=== PATIENT | female | born 1930 | race Caucasian/White ===

== ENCOUNTER 2017-03-05 08:26 | Day surgery (SDC) | payer OTHER, MEDICARE ==
[~2017-03-05] VITALS: Ht 167.6 cm; Wt 63.6 kg
[~2017-03-05 08:26] MED LIST: ACET-76 PO; ALBU8.5H8 IH; AMLO5TAB PO; CARV-49 PO; DIPH-186 PO; DIPH1TAB PO; FERR325T28 PO; FURO-150 PO; ISOS30TA9 PO; METF500T PO; MOME0.242 IH; MULT-1085 PO; NITR0.4T48 SL; OMEG10007 PO; OMEP20CA10 PO; POTA10TA36 PO; SUCR1TAB PO; ZOC40T PO; ZOL50T PO
[2017-03-05] MEDS ORDERED: LIDOcaine Viscous 15ml cup ONE (08:35)
[2017-03-05] MEDS ORDERED: fentaNYL/PF 50MCG/1 ML 2ML syringe ONE (08:35)
[2017-03-05] MEDS ORDERED: MIDAZolam 1mg/ml 10ml vial ONE (08:35)
[2017-03-05 08:40] VITALS: BP 207/103
[2017-03-05] MEDS ORDERED: DEXL60CA3 PO (09:00)
[2017-03-05] MEDS ORDERED: TRAM50TA2 PO (09:01)
[2017-03-05 10:38] VITALS: BP 201/105
[2017-03-05 10:46] VITALS: BP 196/96
[2017-03-05 11:06] VITALS: BP 203/147
[2017-03-05 11:16] VITALS: BP 183/85
== END 2017-03-05 11:30 | disposition home or self-care (01) ==
LOC: GI LAB 08:26
PROVIDERS: ATTEND Internal Medicine Gastroenterology
DX: K31.811 Angiodysplasia of stomach and duodenum with bleeding (principal); K31.7 Polyp of stomach and duodenum; M19.90 Unspecified osteoarthritis, unspecified site; Z98.890 Other specified postprocedural states; I10 Essential (primary) hypertension; E11.9 Type 2 diabetes mellitus without complications; I25.10 Atherosclerotic heart disease of native coronary artery without angina pectoris; Z95.4 Presence of other heart-valve replacement; Z90.710 Acquired absence of both cervix and uterus; Z90.49 Acquired absence of other specified parts of digestive tract
CPT/HCPCS: 44366; 99152; 99153; J2250; J3010; J7030; A4620; G0500

== ENCOUNTER 2017-03-20 12:29 | Outpatient (CLI) | payer OTHER, MEDICARE ==
[~2017-03-20 12:29] MED LIST changes: -ACET-76 PO; -ALBU8.5H8 IH; -AMLO5TAB PO; -CARV-49 PO; +DEXL60CA3 PO; -DIPH-186 PO; -DIPH1TAB PO; -MOME0.242 IH; -MULT-1085 PO; -OMEP20CA10 PO; +TRAM50TA2 PO
== END 2017-03-20 23:59 | disposition home or self-care (01) ==
LOC: RAD 12:29
PROVIDERS: ATTEND Internal Medicine Interventional Cardiology
DX: Z46.89 Encounter for fitting and adjustment of other specified devices (principal); R91.8 Other nonspecific abnormal finding of lung field; Z95.2 Presence of prosthetic heart valve
CPT/HCPCS: 36415; 71046; 83880

== ENCOUNTER 2017-05-24 09:12 | Observation (INO) | payer MEDICARE, OTHER ==
[2017-05-24] VITALS (13 sets, daily range): BP systolic 120–182; BP diastolic 62–79
[~2017-05-24] VITALS: Ht 167.6 cm; Wt 65.6 kg
[2017-05-24] MEDS ORDERED: HYDROcodone/acetaminophen 5mg/325mg tablet PO PRN (10:30)
[2017-05-24] MEDS ORDERED: mag hydrox/Alum hydrox/simeth 30ml oral suspension PO PRN (10:30)
[2017-05-24] MEDS ORDERED: ondansetron/PF 4mg/2ml inj IV PRN (10:30)
[2017-05-24] MEDS ORDERED: acetaminophen 325mg tablet PO PRN (10:30)
[2017-05-24] MEDS ORDERED: magnesium hydroxide 30ml (MOM) UD suspension PO PRN (10:30)
[2017-05-24] MEDS ORDERED: diphenhydrAMINE 25mg capsule PO PRN (10:30)
[2017-05-24] MEDS ORDERED: morphine 4 MG/ML inj SYRINge IV PRN (10:30)
[2017-05-24] MEDS ORDERED: nitroGLYCERIN 0.4mg SUBLingual tab SL PRN (10:40)
[2017-05-24] MEDS ORDERED: sucralfate 1 gm tablet PO PRN (10:40)
[2017-05-24] MEDS ORDERED: dextrose 50%-water 50ml dispensing syringe IV PRN ×2 (11:50)
[2017-05-24] MEDS ORDERED: dextrose ORAL solution 15 GM/59 ML bottle PO PRN ×2 (11:50)
[2017-05-24] MEDS ORDERED: glucagon, human recombinant 1mg kit SUBCUT PRN (11:50)
[2017-05-24] MEDS ORDERED: MESSAGE TO PHARMACY PO ONE (11:50)
[2017-05-24] MEDS ORDERED: insulin Lispro (HumaLOG) vial - multi-dose SQ SCH (11:50)
[2017-05-24] MEDS: isosorbide dinitrate 5mg tablet PO SCH (13:51)
[2017-05-24] MEDS: ferrous sulfate 325mg tablet PO SCH ×2 (13:51→20:12)
[2017-05-24] MEDS ORDERED: AMLO5TAB PO (13:56)
[2017-05-24] MEDS ORDERED: CARV-49 PO (13:56)
[2017-05-24] MEDS ORDERED: MOME220A3 IN (13:56)
[2017-05-24] MEDS ORDERED: ALBU8.5H8 INH (13:58)
[2017-05-24] MEDS ORDERED: MULT-955 PO (13:58)
[2017-05-24] MEDS: furosemide 40mg/4ml inj IV SCH ×2 (15:06→20:05)
[2017-05-24] MEDS ORDERED: metFORMIN 500mg tablet PO SCH (20:00)
[2017-05-24] MEDS ORDERED: atorvastatin 20mg tablet PO SCH (21:00)
[2017-05-24] MEDS ORDERED: insulin glargine (Lantus) pen - multi-dose SQ SCH (21:00)
[2017-05-24 22:19] LABS: BASOPHILS # (AUTO) 0.1 X10'3 (0-0.2); BASOPHILS % (AUTO) 0.7 % (0-1); EOSINOPHILS # (AUTO) 0.2 X10'3 (0-0.9); EOSINOPHILS % (AUTO) 2.9 % (0-6); HEMATOCRIT 27.3 % (35.0-45.0); LYMPHOCYTES # (AUTO) 1.6 X10'3 (1.1-4.8); LYMPHOCYTES % (AUTO) 18.8 % (21-51); MEAN CORPUSCULAR HEMOGLOBIN 27.3 PG (27.0-31.0); MEAN CORPUSCULAR HGB CONC 33.1 % (33.0-36.5); MEAN CORPUSCULAR VOLUME 82.3 FL (78-98); MONOCYTES # (AUTO) 0.7 X10'3 (0-0.9); MONOCYTES % (AUTO) 8.4 % (2-12); NEUTROPHILS % (AUTO) 69.2 % (42-75); PLATELET COUNT 217 X10'3 (140-440); RED BLOOD COUNT 3.32 X10'6 (4.20-5.60); RED CELL DISTRIBUTION WIDTH 18.4 % (11.5-14.5); WHITE BLOOD COUNT 8.6 X10'3 (4.5-11.0)
[2017-05-25] VITALS (12 sets, daily range): BP systolic 134–162; BP diastolic 69–93
[2017-05-25] MEDS ORDERED: pantoprazole 40mg Tablet.DR PO SCH (07:30)
[2017-05-25] MEDS ORDERED: OMEGA-3/DHA/EPA/FISH OIL 1 EACH CAPSULE.DR PO SCH (08:00)
[2017-05-25] MEDS ORDERED: potassium chloride 10mEq ER tablet PO SCH (08:00)
[2017-05-25] MEDS ORDERED: sertraline 50mg tablet PO SCH (08:00)
[2017-05-25] MEDS: isosorbide dinitrate 5mg tablet PO SCH (08:01)
[2017-05-25] MEDS: ferrous sulfate 325mg tablet PO SCH (08:01)
[2017-05-25] MEDS: furosemide 40mg/4ml inj IV SCH (08:02)
[2017-05-25] MEDS ORDERED: cyanocobalamin 1,000 mcg/ml inj IM ONE (09:10)
[2017-05-25 09:32] LABS: BASOPHILS % (AUTO) 0.1 % (0-1); EOSINOPHILS # (AUTO) 0.2 X10'3 (0-0.9); EOSINOPHILS % (AUTO) 2.8 % (0-6); HEMATOCRIT 34.9 % (35.0-45.0); LYMPHOCYTES # (AUTO) 0.9 X10'3 (1.1-4.8); LYMPHOCYTES % (AUTO) 10.6 % (21-51); MEAN CORPUSCULAR HEMOGLOBIN 28.6 PG (27.0-31.0); MEAN CORPUSCULAR HGB CONC 34.3 % (33.0-36.5); MEAN CORPUSCULAR VOLUME 83.3 FL (78-98); MEAN PLATELET VOLUME 7.7 FL (7.4-10.4); MONOCYTES # (AUTO) 0.6 X10'3 (0-0.9); MONOCYTES % (AUTO) 6.4 % (2-12); NEUTROPHILS # (AUTO) 7.2 X10'3 (1.8-7.7); NEUTROPHILS % (AUTO) 80.1 % (42-75); PLATELET COUNT 210 X10'3 (140-440); RED CELL DISTRIBUTION WIDTH 17.8 % (11.5-14.5)
[2017-05-25 09:44] LABS: PARTIAL THROMBOPLASTIN TIME 25 SECONDS (22-32); PROTHROMBIN TIME 9.9 SECONDS (9.0-12.0)
[2017-05-25 09:49] LABS: ALANINE AMINOTRANSFERASE 20 U/L (12-78); ALBUMIN 2.9 G/DL (3.4-5.0); ALBUMIN/GLOBULIN RATIO 0.8 (1.1-1.5); ALKALINE PHOSPHATASE 67 IU/L (46-116); ANION GAP 11 (8-16); ASPARTATE AMINO TRANSFERASE 17 U/L (10-37); BILIRUBIN,TOTAL 0.5 MG/DL (0.1-1.0); BLOOD UREA NITROGEN 56 MG/DL (7-18); BUN/CREATININE RATIO 20.1 (6.6-38.0); CALCIUM 8.5 MG/DL (8.5-10.1); CHLORIDE 106 MMOL/L (99-107); CREATININE 2.79 MG/DL (0.40-0.90); GLUCOSE 160 MG/DL (70-104); MAGNESIUM 1.8 MG/DL (1.5-2.4); POTASSIUM 4.5 MMOL/L (3.5-5.1); SODIUM 142 MMOL/L (135-145); TOTAL CARBON DIOXIDE 25.5 MMOL/L (24-32); TOTAL PROTEIN 6.6 G/DL (6.4-8.2); eGFR 16 ML/MIN
== END 2017-05-25 13:37 | disposition home or self-care (01) ==
LOC: EDSTATUS 09:12 → S STAY 09:16 → MED 3N 09:57
PROVIDERS: ADMIT Internal Medicine; ATTEND Internal Medicine
DX: D64.9 Anemia, unspecified (principal); E78.5 Hyperlipidemia, unspecified; E11.9 Type 2 diabetes mellitus without complications; I11.0 Hypertensive heart disease with heart failure; I50.9 Heart failure, unspecified; I65.23 Occlusion and stenosis of bilateral carotid arteries; Z87.891 Personal history of nicotine dependence; Z90.710 Acquired absence of both cervix and uterus; Z95.2 Presence of prosthetic heart valve
CPT/HCPCS: 36415; 36430; 80053; 82948; 83036; 83735; 84100; 85025; 85610; 85730; 86870; 86885; 86900; 86901; 86902; 86905; 86922; 86945; 87070; 93880; 96372; 96374; 96376; G0378; J1940; J3420; J7030; P9016; 85027; 86920; J1815

== ENCOUNTER 2017-07-09 08:37 | Outpatient (CLI) | payer OTHER ==
[~2017-07-09 08:37] MED LIST changes: +ALBU8.5H8 INH; +AMLO5TAB PO; +CARV-49 PO; -FURO-150 PO; -METF500T PO; +MOME220A3 IN; +MULT-955 PO; -POTA10TA36 PO; -TRAM50TA2 PO
[2017-07-09 10:04] LABS: BASOPHILS % (AUTO) 0.3 % (0-1); EOSINOPHILS # (AUTO) 0.3 X10'3 (0-0.9); EOSINOPHILS % (AUTO) 2.9 % (0-6); HEMATOCRIT 32.4 % (35.0-45.0); HEMOGLOBIN 10.4 g/dl (12.0-16.0); LYMPHOCYTES # (AUTO) 1.5 X10'3 (1.1-4.8); LYMPHOCYTES % (AUTO) 17.6 % (21-51); MEAN CORPUSCULAR HGB CONC 32.1 % (33.0-36.5); MEAN CORPUSCULAR VOLUME 83.9 FL (78-98); MEAN PLATELET VOLUME 7.4 FL (7.4-10.4); MONOCYTES # (AUTO) 0.5 X10'3 (0-0.9); MONOCYTES % (AUTO) 6.1 % (2-12); NEUTROPHILS # (AUTO) 6.3 X10'3 (1.8-7.7); NEUTROPHILS % (AUTO) 73.1 % (42-75); PLATELET COUNT 271 X10'3 (140-440); RED BLOOD COUNT 3.85 X10'6 (4.20-5.60); RED CELL DISTRIBUTION WIDTH 16.8 % (11.5-14.5); WHITE BLOOD COUNT 8.6 X10'3 (4.5-11.0)
[2017-07-09 10:20] LABS: ALBUMIN 2.7 G/DL (3.4-5.0); ANION GAP 8 (8-16); BLOOD UREA NITROGEN 43 MG/DL (7-18); BUN/CREATININE RATIO 14.7 (6.6-38.0); CHLORIDE 105 MMOL/L (99-107); CREATININE 2.92 MG/DL (0.40-0.90); GLUCOSE 105 MG/DL (70-104); POTASSIUM 4.7 MMOL/L (3.5-5.1); SODIUM 140 MMOL/L (135-145); TOTAL CARBON DIOXIDE 26.6 MMOL/L (24-32); eGFR 15 ML/MIN
[2017-07-10] MEDS ORDERED: ASCO500C15 PO (11:41)
[2017-07-10] MEDS ORDERED: OMEP20TA5 PO (11:41)
[2017-07-10] MEDS ORDERED: CHOL200026 PO (11:41)
[2017-07-10] MEDS ORDERED: CALC600T2 PO (11:41)
[2017-07-10] MEDS ORDERED: POTA10TA19 PO (11:41)
[2017-07-10] MEDS ORDERED: DIPH1TAB PO (11:41)
[2017-07-10] MEDS ORDERED: FOLI0.8T PO (11:41)
[2017-07-10] MEDS ORDERED: FURO-150 PO (11:41)
== END 2017-07-09 23:59 | disposition home or self-care (01) ==
LOC: VAS 08:37
PROVIDERS: ATTEND Internal Medicine Cardiovascular Disease
DX: I65.23 Occlusion and stenosis of bilateral carotid arteries (principal); H54.7 Unspecified visual loss; E11.69 Type 2 diabetes mellitus with other specified complication; I10 Essential (primary) hypertension; J45.909 Unspecified asthma, uncomplicated; Z87.891 Personal history of nicotine dependence; Z95.5 Presence of coronary angioplasty implant and graft; Z86.73 Personal history of transient ischemic attack (TIA), and cerebral infarction without residual deficits
CPT/HCPCS: 36415; 80048; 85025; 93880

== ENCOUNTER 2017-07-10 08:23 | Day surgery (SDC) | payer OTHER ==
[~2017-07-10] VITALS: Ht 170.2 cm; Wt 67.5 kg
[2017-07-10] MEDS ORDERED: normal saline 1000ml 1,000 ML IV SCH (08:40)
[2017-07-10 08:50] VITALS: BP 205/87
[2017-07-10 09:51] LABS: ALBUMIN 2.8 G/DL (3.4-5.0); ANION GAP 10 (8-16); BLOOD UREA NITROGEN 43 MG/DL (7-18); BUN/CREATININE RATIO 16.5 (6.6-38.0); CALCIUM 8.5 MG/DL (8.5-10.1); CHLORIDE 106 MMOL/L (99-107); CREATININE 2.61 MG/DL (0.40-0.90); GLUCOSE 96 MG/DL (70-104); POTASSIUM 4.5 MMOL/L (3.5-5.1); SODIUM 141 MMOL/L (135-145); TOTAL CARBON DIOXIDE 24.6 MMOL/L (24-32); eGFR 17 ML/MIN
[2017-07-10] MEDS ORDERED: nitroGLYCERIN 0.4mg SUBLingual tab SL PRN (10:50)
[2017-07-10] MEDS ORDERED: hydrALAZINE 20mg/ml inj. IV ONE (10:50)
[2017-07-10] MEDS ORDERED: DIPH1TAB PO (11:41)
[2017-07-10] MEDS ORDERED: CALC600T2 PO (11:41)
[2017-07-10] MEDS ORDERED: FOLI0.8T PO (11:41)
[2017-07-10] MEDS ORDERED: ASCO500C15 PO (11:41)
[2017-07-10] MEDS ORDERED: POTA10TA19 PO (11:41)
[2017-07-10] MEDS ORDERED: OMEP20TA5 PO (11:41)
[2017-07-10] MEDS ORDERED: FURO-150 PO (11:41)
[2017-07-10] MEDS ORDERED: CHOL200026 PO (11:41)
[2017-07-10 12:19] VITALS: BP 166/76
[2017-07-11] MEDS ORDERED: CLOP75TA15 PO (17:51)
== END 2017-07-10 12:25 | disposition home or self-care (01) ==
LOC: SSTAY O 08:23 → EDSTATUS 11:00 → SSTAY O 12:25
PROVIDERS: ATTEND Internal Medicine Cardiovascular Disease
DX: I65.21 Occlusion and stenosis of right carotid artery (principal); I25.10 Atherosclerotic heart disease of native coronary artery without angina pectoris; E78.5 Hyperlipidemia, unspecified; K21.9 Gastro-esophageal reflux disease without esophagitis; E11.9 Type 2 diabetes mellitus without complications; I10 Essential (primary) hypertension; J45.909 Unspecified asthma, uncomplicated; D64.9 Anemia, unspecified; F32.9 Major depressive disorder, single episode, unspecified; Z90.49 Acquired absence of other specified parts of digestive tract; Z90.710 Acquired absence of both cervix and uterus; Z87.891 Personal history of nicotine dependence; Z86.73 Personal history of transient ischemic attack (TIA), and cerebral infarction without residual deficits; Z88.8 Allergy status to other drugs, medicaments and biological substances; Z79.899 Other long term (current) drug therapy; Z82.49 Family history of ischemic heart disease and other diseases of the circulatory system; Z53.8 Procedure and treatment not carried out for other reasons
CPT/HCPCS: 36415; 80048; J0360; J7030

== ENCOUNTER 2017-07-11 13:00 | Emergency (ER) | payer OTHER ==
[~2017-07-11] VITALS: Ht 162.6 cm; Wt 70.0 kg
[~2017-07-11 13:00] MED LIST changes: +ASCO500C15 PO; +CALC600T2 PO; +CHOL200026 PO; -DEXL60CA3 PO; +DIPH1TAB PO; +FOLI0.8T PO; +FURO-150 PO; -MOME220A3 IN; +OMEP20TA5 PO; +POTA10TA19 PO; -SUCR1TAB PO
[2017-07-11 13:50] LABS: BASOPHILS % (AUTO) 0.3 % (0-1); EOSINOPHILS # (AUTO) 0.2 X10'3 (0-0.9); EOSINOPHILS % (AUTO) 2.4 % (0-6); HEMOGLOBIN 10.2 g/dl (12.0-16.0); LYMPHOCYTES # (AUTO) 1.3 X10'3 (1.1-4.8); LYMPHOCYTES % (AUTO) 15.1 % (21-51); MEAN CORPUSCULAR HEMOGLOBIN 27.3 PG (27.0-31.0); MEAN CORPUSCULAR HGB CONC 33.1 % (33.0-36.5); MEAN CORPUSCULAR VOLUME 82.5 FL (78-98); MEAN PLATELET VOLUME 7.6 FL (7.4-10.4); MONOCYTES # (AUTO) 0.5 X10'3 (0-0.9); MONOCYTES % (AUTO) 5.6 % (2-12); NEUTROPHILS # (AUTO) 6.7 X10'3 (1.8-7.7); NEUTROPHILS % (AUTO) 76.6 % (42-75); PLATELET COUNT 263 X10'3 (140-440); RED BLOOD COUNT 3.75 X10'6 (4.20-5.60); RED CELL DISTRIBUTION WIDTH 17.2 % (11.5-14.5); WHITE BLOOD COUNT 8.7 X10'3 (4.5-11.0)
[2017-07-11 14:09] LABS: ALANINE AMINOTRANSFERASE 14 U/L (12-78); ALBUMIN 2.8 G/DL (3.4-5.0); ALBUMIN/GLOBULIN RATIO 0.7 (1.1-1.5); ALKALINE PHOSPHATASE 79 IU/L (46-116); ANION GAP 6 (8-16); ASPARTATE AMINO TRANSFERASE 15 U/L (10-37); BILIRUBIN,TOTAL 0.4 MG/DL (0.1-1.0); BLOOD UREA NITROGEN 47 MG/DL (7-18); BUN/CREATININE RATIO 17.7 (6.6-38.0); CALCIUM 8.5 MG/DL (8.5-10.1); CHLORIDE 107 MMOL/L (99-107); CREATININE 2.65 MG/DL (0.40-0.90); GLUCOSE 102 MG/DL (70-104); POTASSIUM 4.8 MMOL/L (3.5-5.1); SODIUM 140 MMOL/L (135-145); TOTAL CARBON DIOXIDE 27.2 MMOL/L (24-32); eGFR 17 ML/MIN
[2017-07-11] MEDS ORDERED: clopidogrel 300mg tablet PO ONE (17:50)
[2017-07-11] MEDS ORDERED: CLOP75TA15 PO (17:51)
[2017-07-11] MEDS ORDERED: clopidogrel 75mg tablet PO ONE (18:00)
[2017-07-11 18:42] VITALS: BP 194/92
== END 2017-07-11 18:57 | disposition home or self-care (01) ==
LOC: ER 13:01
DX: I65.21 Occlusion and stenosis of right carotid artery (principal); H54.61 Unqualified visual loss, right eye, normal vision left eye; I10 Essential (primary) hypertension; E11.9 Type 2 diabetes mellitus without complications; I25.10 Atherosclerotic heart disease of native coronary artery without angina pectoris; E78.00 Pure hypercholesterolemia, unspecified; J45.909 Unspecified asthma, uncomplicated; K21.9 Gastro-esophageal reflux disease without esophagitis; M19.90 Unspecified osteoarthritis, unspecified site; Z90.49 Acquired absence of other specified parts of digestive tract; Z90.710 Acquired absence of both cervix and uterus; Z98.890 Other specified postprocedural states; Z98.61 Coronary angioplasty status; Z88.6 Allergy status to analgesic agent; Z79.899 Other long term (current) drug therapy
CPT/HCPCS: 36415; 70544; 70551; 80053; 85025; 93005; 99285

== ENCOUNTER 2017-08-09 07:25 | Day surgery (SDC) | payer OTHER ==
[2017-08-09] VITALS (16 sets, daily range): BP systolic 102–177; BP diastolic 47–108
[~2017-08-09] VITALS: Ht 162.6 cm; Wt 64.0 kg
[~2017-08-09 07:25] MED LIST changes: +CLOP75TA15 PO
[2017-08-09] MEDS ORDERED: normal saline 1000ml 1,000 ML IV SCH ×2 (07:55→10:45)
[2017-08-09] MEDS ORDERED: atropine 0.1 mg/ml 5ml syringe ONE (08:00)
[2017-08-09] MEDS ORDERED: atropine 0.1mg/ml 10ml syringe IV ONE (08:10)
[2017-08-09] MEDS ORDERED: midazolam 2 mg/2 ml injection IV PRN (08:10)
[2017-08-09] MEDS ORDERED: fentaNYL/PF 50MCG/1 ML 2ML syringe IV PRN ×2 (08:10→12:30)
[2017-08-09 08:27] LABS: BASOPHILS # (AUTO) 0.1 X10'3 (0-0.2); BASOPHILS % (AUTO) 0.7 % (0-1); EOSINOPHILS # (AUTO) 0.2 X10'3 (0-0.9); EOSINOPHILS % (AUTO) 2.8 % (0-6); HEMATOCRIT 31.3 % (35.0-45.0); HEMOGLOBIN 10.4 g/dl (12.0-16.0); LYMPHOCYTES # (AUTO) 1.7 X10'3 (1.1-4.8); LYMPHOCYTES % (AUTO) 19.7 % (21-51); MEAN CORPUSCULAR HEMOGLOBIN 28.4 PG (27.0-31.0); MEAN CORPUSCULAR HGB CONC 33.4 % (33.0-36.5); MEAN PLATELET VOLUME 8.4 FL (7.4-10.4); MONOCYTES # (AUTO) 0.5 X10'3 (0-0.9); MONOCYTES % (AUTO) 6.3 % (2-12); NEUTROPHILS # (AUTO) 6.2 X10'3 (1.8-7.7); NEUTROPHILS % (AUTO) 70.5 % (42-75); PLATELET COUNT 251 X10'3 (140-440); RED BLOOD COUNT 3.69 X10'6 (4.20-5.60); RED CELL DISTRIBUTION WIDTH 16.5 % (11.5-14.5); WHITE BLOOD COUNT 8.7 X10'3 (4.5-11.0)
[2017-08-09 08:39] LABS: ALBUMIN 3.3 G/DL (3.4-5.0); ANION GAP 10 (8-16); BLOOD UREA NITROGEN 47 MG/DL (7-18); BUN/CREATININE RATIO 17.4 (6.6-38.0); CALCIUM 8.7 MG/DL (8.5-10.1); CHLORIDE 106 MMOL/L (99-107); GLUCOSE 105 MG/DL (70-104); SODIUM 141 MMOL/L (135-145); TOTAL CARBON DIOXIDE 24.6 MMOL/L (24-32); eGFR 17 ML/MIN
[2017-08-09] MEDS ORDERED: METF500T PO (08:54)
[2017-08-09] MEDS ORDERED: CLOP75TA15 PO (08:55)
[2017-08-09] MEDS ORDERED: OMEG1CAP46 PO (08:57)
[2017-08-09] MEDS ORDERED: CALC1TAB2 PO (08:57)
[2017-08-09] MEDS ORDERED: ATOR20TA PO (08:59)
[2017-08-09] MEDS ORDERED: iohexol 300mg/ml 100ml inj. ONE ×2 (09:03→09:22)
[2017-08-09] MEDS ORDERED: LIDOcaine 1%/PF 5ML 10 MG/ML VIAL ONE (09:03)
[2017-08-09] MEDS ORDERED: atropine 0.1mg/ml 10ml syringe ONE (09:25)
[2017-08-09] MEDS ORDERED: fentaNYL/PF 50MCG/1 ML 2ML syringe ONE (09:25)
[2017-08-09] MEDS ORDERED: midazolam 2 mg/2 ml injection ONE (09:25)
[2017-08-09] MEDS ORDERED: heparin 1,000unit/ml 10ml vial 10 ML ONE (09:54)
== END 2017-08-09 17:45 | disposition home or self-care (01) ==
LOC: SSTAY O 07:25
PROVIDERS: ATTEND Radiology Diagnostic Radiology
DX: I65.21 Occlusion and stenosis of right carotid artery (principal); I72.4 Aneurysm of artery of lower extremity; I77.89 Other specified disorders of arteries and arterioles; I77.1 Stricture of artery; I25.10 Atherosclerotic heart disease of native coronary artery without angina pectoris; E78.5 Hyperlipidemia, unspecified; I10 Essential (primary) hypertension; J45.998 Other asthma; K21.9 Gastro-esophageal reflux disease without esophagitis; E11.9 Type 2 diabetes mellitus without complications; F32.9 Major depressive disorder, single episode, unspecified; M19.90 Unspecified osteoarthritis, unspecified site; Z96.642 Presence of left artificial hip joint; Z90.49 Acquired absence of other specified parts of digestive tract; Z95.5 Presence of coronary angioplasty implant and graft; Z98.41 Cataract extraction status, right eye; Z98.42 Cataract extraction status, left eye; Z90.710 Acquired absence of both cervix and uterus; Z79.84 Long term (current) use of oral hypoglycemic drugs; Z88.6 Allergy status to analgesic agent; Z95.2 Presence of prosthetic heart valve; Z87.891 Personal history of nicotine dependence; Z90.89 Acquired absence of other organs; Z85.41 Personal history of malignant neoplasm of cervix uteri; Z86.73 Personal history of transient ischemic attack (TIA), and cerebral infarction without residual deficits; Z88.8 Allergy status to other drugs, medicaments and biological substances; Z79.899 Other long term (current) drug therapy; Z98.890 Other specified postprocedural states
CPT/HCPCS: 36222; 36415; 76700; 76936; 80048; 82948; 85025; 99152; 99153; A6258; A6402; A6449; C1760; C1769; C1894; J0461; J1644; J2001; J2250; J3010; J7030; Q9967; 36223; 36224; 76937; G0269